=== PATIENT | male | born 1945 | race Caucasian/White ===

== ENCOUNTER 2017-03-29 00:05 | Emergency (ER) | payer MEDICARE, OTHER ==
[2017-03-29] MEDS ORDERED: NEURONTIN (00:21)
[2017-03-29] MEDS ORDERED: ALBUTEROL17 GM INH (00:21)
== END 2017-03-29 01:00 | disposition home or self-care (01) ==
LOC: SED 00:05
DX: I73.9 Peripheral vascular disease, unspecified (principal)
CPT/HCPCS: 99283